=== PATIENT | male | born 1980 | race American Indian/Alaskan Native ===

== ENCOUNTER 2021-03-15 22:07 | Emergency (ER) | payer SELFPAY ==
[2021-03-15 22:11] VITALS: BP 106/81; PULSE 140; RESP 19; TEMP 37.2; O2SAT 97
[2021-03-15 22:14] VITALS: BP 100/68; PULSE 152; O2SAT 95
[2021-03-15] MEDS: LORazepam 2 MG/ML INJ ×2 (22:15→22:52)
[2021-03-15] MEDS: SODIUM CHLORIDE 0.9% 1,000 ML 150 ML IV (22:29)
[2021-03-15 22:30] LABS: Add Manual Diff / Slide Review NO; Basophils Absolute Auto 100 /uL (0-100); Basophils Percent Auto 0.6 % (0-2); Eosinophils Absolute Auto 0 /uL (0-450); Eosinophils Percent Auto 0.1 % (2-4); Hematocrit 41.8 % (41-53); Hemoglobin 14.4 g/dL (13.5-17.5); Lymphocytes Absolute Auto 1400 /uL (1100-4500); Lymphocytes Percent Auto 13.1 % (25-40); Mean Corpuscular HGB Conc 34.6 % (30-36); Mean Corpuscular Hemoglobin 32.2 PG (26-34); Mean Corpuscular Volume 93.1 fL (80-100); Monocytes Absolute Auto 300 /uL (0-900); Monocytes Percent Auto 2.7 % (3-14); Neutrophils Absolute Auto 9100 /uL (1500-7000); Neutrophils Percent Auto 83.5 % (50-75); Platelet Count 338 X10^3/uL (150-400); Red Blood Cell Count 4.49 X10^6/uL (4.5-5.9); Red Cell Distribution Width 12.8 % (11.6-14.8); White Blood Cell Count 10.9 X10^3/uL (4.5-11.0)
[2021-03-15 22:37] LABS: Prothrombin Time 11.2 SECONDS (10.1-12.7)
[2021-03-15 22:40] LABS: Acetaminophen < 10 ug/mL (10-30); Albumin 4.7 g/dL (3.5-5.0); Albumin Globulin Ratio 1.7 (1.0-2.8); Alkaline Phosphatase 75 U/L (38-126); BUN Creatinine Ratio 5.6 (6-22); Bilirubin Total 0.4 mg/dL (0.2-1.3); Blood Urea Nitrogen 6 mg/dL (9-20); Calcium 9.4 mg/dL (8.4-10.2); Carbon Dioxide 14 mmol/L (22-32); Chloride 102 mmol/L (98-107); Estimated Glomerular Filt Rate > 60.0 mL/min (>60); Ethanol (ETOH) < 10 mg/dL; Globulin 2.7 g/dL (1.7-4.1); Glucose 200 mg/dL (70-100); HEMOLYSIS < 15 (0-50); PTT Partial Thromboplastin Tim 26 SECONDS (26.4-36.2); Potassium 3.2 mmol/L (3.4-5.1); Salicylate < 1.0 mg/dL (<20); Sodium 138 mmol/L (137-145); Total Protein 7.4 g/dL (6.3-8.2)
[2021-03-15 22:45] LABS: Aspartate Aminotransferase 37 IU/L (17-59)
[2021-03-15 22:46] VITALS: BP 92/52; PULSE 123; O2SAT 100
[2021-03-15 22:46] LABS: Alanine Aminotransferase 25 IU/L (<50)
[2021-03-15] MEDS: THIAMINE 100 MG in DEXTROSE 5 % IN WATER 50 ML 204 ML IV (22:47)
[2021-03-15 22:55] LABS: Lactate (Lactic Acid) 13.3 mmol/L (0.7-2.1)
[2021-03-15 22:56] LABS: Prolactin 31.8 ng/mL (3.7-17.9)
--- NOTE | 2021-03-15 23:01 | PC.NURSE ---
Pt remains combative/uncooperative, removing lines and wires. girlfriend Jacki at bedside. Pt medicated with additional 2mg ativan per verbal order from Dr Wolff. Pt c/o abd and back pain.
[2021-03-15 23:14] VITALS: BP 112/62; PULSE 102; PULSE 97; RESP 18; RESP 20; O2SAT 98
[2021-03-15 23:20] VITALS: BP 112/62; PULSE 96; RESP 16; O2SAT 99
[2021-03-15 23:22] LABS: Thyroid Stimulating Hormone 0.261 uIU/mL (0.47-4.68)
[2021-03-15 23:30] VITALS: BP 111/69; PULSE 95; O2SAT 97
[2021-03-16] VITALS (7 sets, daily range): BP systolic 109–129; BP diastolic 61–80; PULSE 93–121; RESP 17–18; TEMP 37.3; O2SAT 96–100
--- NOTE | 2021-03-16 00:16 | ED.SEIZURE ---
HPI - Seizure General Chief Complaint: Seizure Stated Complaint: Seizure Time Seen by Provider: 03/15/21 22:11 Source: EMS Mode of arrival: EMS Limitations: altered mental status History of Present Illness HPI Narrative: 40M nonsmoker with history of seizures presents by EMS for what sounds like seizure activity as witnessed by his girlfriend. Patient has historically been prescribed phenytoin extended 500 mg daily but it sounds like he has not been taking it. The history is very vague and unclear. Per girlfriend he has not used any drugs or alcohol, there has been no recent trauma, he was in his normal state of health until this episode this afternoon. He has been eating and drinking without difficulty and acting appropriate until this evening's event. Prior to arrival he was acting up for EMS and becoming a bit violent in a wrist to hurt himself and others and as a result was given Versed IM prior to his arrival. MD complaint: seizure Onset (ago): hour(s) Witnessed: yes - by bystander Trauma: No Seizure History: known seizure disorder Place: home Possible Precipitating Event: medication Treatments prior to arrival: benzodiazepines Related Data Previous Rx's Medication Instructions Recorded phenytoin sodium extended 500 mg PO QDAY #30 cap 03/16/21 [Dilantin Extended] Allergies Allergy/AdvReac Type Severity Reaction Status Date / Time INGREDIENT: NKDA - NO KNOWN Allergy Unknown Uncoded 03/07/18 12:55 DRUG ALLERGIES Review of Systems Review of Systems ROS Unobtainable: Unobtainable due to mental status/LOC Patient History Social History Smoking Status: Never smoker Smoking Status: Never smoker alcohol intake frequency: 0-2 drinks per day Substance Use Type: does not use Exam Narrative Exam Narrative: GENERAL: [40] year old patient appears stated age. Well-nourished, well-developed patient, in mild distress. Confused, restless, apparently postictal HEAD: Atraumatic. Normocephalic. EYES: Pupils equal round and reactive. Extraocular motions intact. No scleral icterus. No injection or drainage. ENT: Nose without bleeding, purulent drainage. Throat without erythema, tonsillar hypertrophy or exudate. Airway patent. NECK: Trachea midline. Non tender CARDIOVASCULAR: Regular rate and rhythm without murmurs, gallops, or rubs. RESPIRATORY: Clear to auscultation. Breath sounds equal bilaterally. No wheezes, rales, or rhonchi. GASTROINTESTINAL: Abdomen soft, non-tender, nondistended. EXTREMITIES: No edema or joint tenderness. BACK: Nontender without deformity or crepitance. No flank tenderness. SKIN: No rash or erythema of visible areas Initial Vital Signs Initial Vital Signs: Vital Signs Temperature 99.0 F 03/15/21 22:11 Pulse Rate 140 H 03/15/21 22:11 Respiratory Rate 03/15/21 22:11 Blood Pressure 106/81 03/15/21 22:11 Pulse Oximetry 97 03/15/21 22:11 Scores GCS [place] coma scale eye opening: To sound [place] coma scale verbal response: Confused [place] coma scale motor response: Localising [place] coma scale total score: 12 Course Orders Ordered: ED Orders 03/15/21 22:11 Urinalysis and Microscopic Stat Urine Drug Screen, Rapid Stat 03/15/21 22:12 CT head/brain wo con Stat EKG-12 Lead Stat 03/15/21 22:20 Acetaminophen Stat Complete Blood Count AUTO DIFF Stat Comprehensive Metabolic Panel Stat Ethanol (ETOH) Stat Lactate (Lactic Acid) Stat Partial Thromboplastin Time Stat Prolactin Stat Prothrombin Time INR Stat Salicylate Stat Thyroid Stimulating Hormone Stat 03/16/21 00:17 Phenytoin / Dilantin Stat 03/16/21 01:10 COVID19 -Nasal swab/Pre-Proc Stat Sodium Chloride (Normal Saline 0.9%) 1,000 mls @ 150 mls/hr IV CONT NETTA Last Infusion: 03/16/21 03:05 Dose: 0 mls/hr Documented by: Admin: 03/15/21 22:29 Dose: 150 mls/hr Documented by: FAHAD Sodium Chloride (Normal Saline 0.9%) 1,000 mls @ 1,000 mls/hr IV BOLUS ONE Stop: 03/16/21 06:40 Discontinued Medications Thiamine HCl 100 mg/ Dextrose 51 mls @ 204 mls/hr IV NOW ONE Stop: 03/15/21 22:12 Last Infusion: 03/15/21 23:06 Dose: 0 mls/hr Documented by: Admin: 03/15/21 22:47 Dose: 204 mls/hr Documented by: FAHAD Phenytoin 1,000 mg/ Sodium (Chloride) 120 mls @ 120 mls/hr IV NOW ONE Stop: 03/16/21 00:57 Last Infusion: 03/16/21 03:05 Dose: 0 mls/hr Documented by: Admin: 03/16/21 01:24 Dose: 120 mls/hr Documented by: FAHAD Reevaluation(s) Reevaluation #1: patient AOx3. Doing much better. NO pain, confusion. Patient has been loaded with Dilantin. Vital Signs Vital signs: Vital Signs - 8 hr 03/15/21 22:11 03/15/21 22:14 03/15/21 22:46 Temperature 99.0 F Pulse Rate 140 H 152 H 123 H Pulse Rate [Orthostatic Lying] Pulse Rate [Orthostatic Sitting] Pulse Rate [Orthostatic Standing] Respiratory Rate 19 Blood Pressure 106/81 100/68 92/52 L Blood Pressure [Orthostatic Lying] Blood Pressure [Orthostatic Sitting] Blood Pressure [Orthostatic Standing] Pulse Oximetry 97 95 100 03/15/21 23:14 03/15/21 23:20 03/15/21 23:30 Temperature Pulse Rate 102 H 96 H 95 H Pulse Rate [Orthostatic Lying] Pulse Rate [Orthostatic Sitting] Pulse Rate [Orthostatic Standing] Respiratory Rate 20 16 Blood Pressure 112/62 112/62 111/69 Blood Pressure [Orthostatic Lying] Blood Pressure [Orthostatic Sitting] Blood Pressure [Orthostatic Standing] Pulse Oximetry 98 99 97 03/16/21 00:00 03/16/21 00:30 03/16/21 01:46 Temperature Pulse Rate 100 H 93 H 94 H Pulse Rate [Orthostatic Lying] Pulse Rate [Orthostatic Sitting] Pulse Rate [Orthostatic Standing] Respiratory Rate Blood Pressure 115/71 Blood Pressure [Orthostatic Lying] Blood Pressure [Orthostatic Sitting] Blood Pressure [Orthostatic Standing] Pulse Oximetry 96 97 100 03/16/21 01:47 03/16/21 05:19 03/16/21 05:41 Temperature 99.1 F Pulse Rate 99 H 105 H Pulse Rate [Orthostatic Lying] 99 H Pulse Rate [Orthostatic Sitting] 110 H Pulse Rate [Orthostatic Standing] 121 H Respiratory Rate 17 Blood Pressure 129/80 126/61 Blood Pressure [Orthostatic Lying] 109/70 Blood Pressure [Orthostatic Sitting] 113/72 Blood Pressure [Orthostatic Standing] 111/64 Pulse Oximetry 100 98 MDM - Seizure Lab Data Result diagrams: 03/15/21 22:20 03/15/21 22:20 Labs: Lab Results 03/15/21 03/15/21 03/15/21 Range/Units 22:20 22:20 22:20 WBC 10.9 (4.5-11.0) X10^3/uL RBC 4.49 L (4.5-5.9) X10^6/uL Hgb 14.4 (13.5-17.5) g/dL Hct 41.8 (41-53) % MCV 93.1 (80-100) fL MCH 32.2 (26-34) PG MCHC 34.6 (30-36) % RDW 12.8 (11.6-14.8) % Plt Count 338 (150-400) X10^3/uL Neut % (Auto) 83.5 H (50-75) % Lymph % (Auto) 13.1 L (25-40) % [place] % (Auto) 2.7 L (3-14) % Eos % (Auto) 0.1 L (2-4) % Baso % (Auto) 0.6 (0-2) % Neut # (Auto) 9100 H (4522-9415) /uL Lymph # (Auto) 1400 (4881-4151) /uL [place] # (Auto) 300 (0-900) /uL Eos # (Auto) 0 (0-450) /uL Baso # (Auto) 100 (0-100) /uL PT 11.2 (10.1-12.7) SECONDS INR 1.0 (0.9-1.3) APTT 26 L (26.4-36.2) SECONDS Sodium 138 (137-145) mmol/L Potassium 3.2 L (3.4-5.1) mmol/L Chloride 102 (98-107) mmol/L Carbon Dioxide 14 L (22-32) mmol/L BUN 6 L (9-20) mg/dL Creatinine 1.08 (0.66-1.25) mg/dL Estimated GFR > 60.0 (>60) mL/min BUN/Creatinine Ratio 5.6 L (6-22) Glucose 200 H (70-100) mg/dL Lactate (0.7-2.1) mmol/L Calcium 9.4 (8.4-10.2) mg/dL Total Bilirubin 0.4 (0.2-1.3) mg/dL AST 37 (17-59) IU/L ALT 25 (<50) IU/L Alkaline Phosphatase 75 (38-126) U/L Total Protein 7.4 (6.3-8.2) g/dL Albumin 4.7 (3.5-5.0) g/dL Globulin 2.7 (1.7-4.1) g/dL Albumin/Globulin Ratio 1.7 (1.0-2.8) TSH (0.47-4.68) uIU/mL Prolactin 31.8 H (3.7-17.9) ng/mL Urine Color Urine Appearance Urine pH (4.5-8.0) Ur Specific [place] (1.000-1.035) Urine Protein (Negative) Urine Glucose (UA) (Negative) g/dL Urine Ketones (NEGATIVE) Urine Occult Blood (Negative) Urine Nitrate (Negative) Urine Bilirubin (NEGATIVE) Urine Urobilinogen (0.2) E.U./dL Ur Leukocyte Esterase (NEGATIVE) Urine RBC (0-5/HPF) Urine WBC (0-5/HPF) Urine Bacteria (None) Ur Culture Indicated? Salicylates < 1.0 (<20) mg/dL U Opiates 300ng/mL cut (Negative) Ur Oxycodone Screen (Negative) Urine Methadone Screen (Negative) Acetaminophen < 10 L (10-30) ug/mL Ur Barbiturates Screen (Negative) Phenytoin (10-20) ug/mL U Tricyclic Antidepress (Negative) Ur Phencyclidine Scrn (Negative) Ur Amphetamines Screen (Negative) U Methamphetamines Scrn (Negative) Ur MDMA Scrn (Ecstasy) (Negative) U Benzodiazepines Scrn (Negative) Urine Cocaine Screen (Negative) U Marijuana (THC) Screen (Negative) Ethyl Alcohol < 10 ( - 10) mg/dL SARS-CoV-2 (PCR) (Negative) 03/15/21 03/15/21 03/15/21 Range/Units 22:20 22:20 22:20 WBC (4.5-11.0) X10^3/uL RBC (4.5-5.9) X10^6/uL Hgb (13.5-17.5) g/dL Hct (41-53) % MCV (80-100) fL MCH (26-34) PG MCHC (30-36) % RDW (11.6-14.8) % Plt Count (150-400) X10^3/uL Neut % (Auto) (50-75) % Lymph % (Auto) (25-40) % [place] % (Auto) (3-14) % Eos % (Auto) (2-4) % Baso % (Auto) (0-2) % Neut # (Auto) (1763-7022) /uL Lymph # (Auto) (3556-0170) /uL [place] # (Auto) (0-900) /uL Eos # (Auto) (0-450) /uL Baso # (Auto) (0-100) /uL PT (10.1-12.7) SECONDS INR (0.9-1.3) APTT (26.4-36.2) SECONDS Sodium (137-145) mmol/L Potassium (3.4-5.1) mmol/L Chloride (98-107) mmol/L Carbon Dioxide (22-32) mmol/L BUN (9-20) mg/dL Creatinine (0.66-1.25) mg/dL Estimated GFR (>60) mL/min BUN/Creatinine Ratio (6-22) Glucose (70-100) mg/dL Lactate 13.3 H* (0.7-2.1) mmol/L Calcium (8.4-10.2) mg/dL Total Bilirubin (0.2-1.3) mg/dL AST (17-59) IU/L ALT (<50) IU/L Alkaline Phosphatase (38-126) U/L Total Protein (6.3-8.2) g/dL Albumin (3.5-5.0) g/dL Globulin (1.7-4.1) g/dL Albumin/Globulin Ratio (1.0-2.8) TSH 0.261 L (0.47-4.68) uIU/mL Prolactin (3.7-17.9) ng/mL Urine Color Urine Appearance Urine pH (4.5-8.0) Ur Specific [place] (1.000-1.035) Urine Protein (Negative) Urine Glucose (UA) (Negative) g/dL Urine Ketones (NEGATIVE) Urine Occult Blood (Negative) Urine Nitrate (Negative) Urine Bilirubin (NEGATIVE) Urine Urobilinogen (0.2) E.U./dL Ur Leukocyte Esterase (NEGATIVE) Urine RBC (0-5/HPF) Urine WBC (0-5/HPF) Urine Bacteria (None) Ur Culture Indicated? Salicylates (<20) mg/dL U Opiates 300ng/mL cut (Negative) Ur Oxycodone Screen (Negative) Urine Methadone Screen (Negative) Acetaminophen (10-30) ug/mL Ur Barbiturates Screen (Negative) Phenytoin < 3.0 L (10-20) ug/mL U Tricyclic Antidepress (Negative) Ur Phencyclidine Scrn (Negative) Ur Amphetamines Screen (Negative) U Methamphetamines Scrn (Negative) Ur MDMA Scrn (Ecstasy) (Negative) U Benzodiazepines Scrn (Negative) Urine Cocaine Screen (Negative) U Marijuana (THC) Screen (Negative) Ethyl Alcohol ( - 10) mg/dL SARS-CoV-2 (PCR) (Negative) 03/16/21 03/16/21 03/16/21 Range/Units 00:27 01:10 05:45 WBC (4.5-11.0) X10^3/uL RBC (4.5-5.9) X10^6/uL Hgb (13.5-17.5) g/dL Hct (41-53) % MCV (80-100) fL MCH (26-34) PG MCHC (30-36) % RDW (11.6-14.8) % Plt Count (150-400) X10^3/uL Neut % (Auto) (50-75) % Lymph % (Auto) (25-40) % [place] % (Auto) (3-14) % Eos % (Auto) (2-4) % Baso % (Auto) (0-2) % Neut # (Auto) (0376-3494) /uL Lymph # (Auto) (4558-3029) /uL [place] # (Auto) (0-900) /uL Eos # (Auto) (0-450) /uL Baso # (Auto) (0-100) /uL PT (10.1-12.7) SECONDS INR (0.9-1.3) APTT (26.4-36.2) SECONDS Sodium (137-145) mmol/L Potassium (3.4-5.1) mmol/L Chloride (98-107) mmol/L Carbon Dioxide (22-32) mmol/L BUN (9-20) mg/dL Creatinine (0.66-1.25) mg/dL Estimated GFR (>60) mL/min BUN/Creatinine Ratio (6-22) Glucose (70-100) mg/dL Lactate 2.5 H (0.7-2.1) mmol/L Calcium (8.4-10.2) mg/dL Total Bilirubin (0.2-1.3) mg/dL AST (17-59) IU/L ALT (<50) IU/L Alkaline Phosphatase (38-126) U/L Total Protein (6.3-8.2) g/dL Albumin (3.5-5.0) g/dL Globulin (1.7-4.1) g/dL Albumin/Globulin Ratio (1.0-2.8) TSH (0.47-4.68) uIU/mL Prolactin (3.7-17.9) ng/mL Urine Color Yellow Urine Appearance Clear Urine pH 7.0 (4.5-8.0) Ur Specific [place] 1.020 (1.000-1.035) Urine Protein Negative (Negative) Urine Glucose (UA) Negative (Negative) g/dL Urine Ketones Negative (NEGATIVE) Urine Occult Blood Negative (Negative) Urine Nitrate Negative (Negative) Urine Bilirubin Negative (NEGATIVE) Urine Urobilinogen 0.2 (0.2) E.U./dL Ur Leukocyte Esterase Negative (NEGATIVE) Urine RBC None seen (0-5/HPF) Urine WBC None seen (0-5/HPF) Urine Bacteria None seen (None) Ur Culture Indicated? Cult not indicated Salicylates (<20) mg/dL U Opiates 300ng/mL cut (Negative) Ur Oxycodone Screen (Negative) Urine Methadone Screen (Negative) Acetaminophen (10-30) ug/mL Ur Barbiturates Screen (Negative) Phenytoin (10-20) ug/mL U Tricyclic Antidepress (Negative) Ur Phencyclidine Scrn (Negative) Ur Amphetamines Screen (Negative) U Methamphetamines Scrn (Negative) Ur MDMA Scrn (Ecstasy) (Negative) U Benzodiazepines Scrn (Negative) Urine Cocaine Screen (Negative) U Marijuana (THC) Screen (Negative) Ethyl Alcohol ( - 10) mg/dL SARS-CoV-2 (PCR) Negative (Negative) 03/16/21 Range/Units 05:45 WBC (4.5-11.0) X10^3/uL RBC (4.5-5.9) X10^6/uL Hgb (13.5-17.5) g/dL Hct (41-53) % MCV (80-100) fL MCH (26-34) PG MCHC (30-36) % RDW (11.6-14.8) % Plt Count (150-400) X10^3/uL Neut % (Auto) (50-75) % Lymph % (Auto) (25-40) % [place] % (Auto) (3-14) % Eos % (Auto) (2-4) % Baso % (Auto) (0-2) % Neut # (Auto) (7888-6746) /uL Lymph # (Auto) (8600-5273) /uL [place] # (Auto) (0-900) /uL Eos # (Auto) (0-450) /uL Baso # (Auto) (0-100) /uL PT (10.1-12.7) SECONDS INR (0.9-1.3) APTT (26.4-36.2) SECONDS Sodium (137-145) mmol/L Potassium (3.4-5.1) mmol/L Chloride (98-107) mmol/L Carbon Dioxide (22-32) mmol/L BUN (9-20) mg/dL Creatinine (0.66-1.25) mg/dL Estimated GFR (>60) mL/min BUN/Creatinine Ratio (6-22) Glucose (70-100) mg/dL Lactate (0.7-2.1) mmol/L Calcium (8.4-10.2) mg/dL Total Bilirubin (0.2-1.3) mg/dL AST (17-59) IU/L ALT (<50) IU/L Alkaline Phosphatase (38-126) U/L Total Protein (6.3-8.2) g/dL Albumin (3.5-5.0) g/dL Globulin (1.7-4.1) g/dL Albumin/Globulin Ratio (1.0-2.8) TSH (0.47-4.68) uIU/mL Prolactin (3.7-17.9) ng/mL Urine Color Urine Appearance Urine pH (4.5-8.0) Ur Specific [place] (1.000-1.035) Urine Protein (Negative) Urine Glucose (UA) (Negative) g/dL Urine Ketones (NEGATIVE) Urine Occult Blood (Negative) Urine Nitrate (Negative) Urine Bilirubin (NEGATIVE) Urine Urobilinogen (0.2) E.U./dL Ur Leukocyte Esterase (NEGATIVE) Urine RBC (0-5/HPF) Urine WBC (0-5/HPF) Urine Bacteria (None) Ur Culture Indicated? Salicylates (<20) mg/dL U Opiates 300ng/mL cut Negative (Negative) Ur Oxycodone Screen Negative (Negative) Urine Methadone Screen Negative (Negative) Acetaminophen (10-30) ug/mL Ur Barbiturates Screen Positive H (Negative) Phenytoin (10-20) ug/mL U Tricyclic Antidepress Negative (Negative) Ur Phencyclidine Scrn Negative (Negative) Ur Amphetamines Screen Negative (Negative) U Methamphetamines Scrn Negative (Negative) Ur MDMA Scrn (Ecstasy) Negative (Negative) U Benzodiazepines Scrn Positive H (Negative) Urine Cocaine Screen Negative (Negative) U Marijuana (THC) Screen Positive H (Negative) Ethyl Alcohol ( - 10) mg/dL SARS-CoV-2 (PCR) (Negative) Point of Care Testing Glucose POC 172 Discharge Plan Departure Patient Disposition: Home Clinical Impression: Epileptic seizure Instructions: DI for Seizure Disorder -- Adult Activity Restrictions/Additional Instructions: *You have been diagnosed with [breakthrough seizure due to medical noncompliance] *What to do: *Take medications as directed *Follow up with your primary care provider in 2-3 days, call for an appointment. Let them know you were seen in the Emergency Department and that we ask that you be seen in follow up *Return to ER if you should have any new, worsening or concerning symptoms Please call our Social Work team at [phone] after 12pm today, they may have a way to help you get your medications Prescriptions: Continued phenytoin sodium extended [Dilantin Extended] 100 MG capsule 500 mg PO QDAY Qty: 30 RF: 0 Referrals: Cale Muñoz MD [Primary Care Provider] -
[2021-03-16 00:22] LABS: Reflexed Lactate in 2 Hours Y
[2021-03-16 00:38] LABS: Phenytoin / Dilantin < 3.0 ug/mL (10-20)
[2021-03-16 00:53] LABS: Lactate 2HR (Lactic Acid Rflx) 2.5 mmol/L (0.7-2.1)
[2021-03-16] MEDS: PHENYTOIN 1,000 MG in SODIUM CHLORIDE 0.9% 100 ML 120 ML IV (01:24)
[2021-03-16 01:36] LABS: COVID19 -Nasal RAPID Negative (Negative)
[2021-03-16 05:51] LABS: Bacteria Urine None Seen; RBC Urine None Seen (0-5/HPF); WBC Urine None Seen (0-5/HPF)
[2021-03-16 05:53] LABS: Appearance Urine UA CLEAR; Bilirubin Urine UA NEGATIVE (NEGATIVE); Color Urine UA YELLOW; Glucose Urine UA NEGATIVE (Negative); Ketones Urine UA NEGATIVE (NEGATIVE); Leukocyte Esterase Urine UA NEGATIVE (NEGATIVE); Nitrite Urine UA NEGATIVE (Negative); Occult Blood Urine UA NEGATIVE (Negative); Protein Urine UA NEGATIVE (Negative); Urobilinogen Urine UA 0.2 E.U./dL (0.2)
[2021-03-16 05:58] LABS: Culture Indicated Urine Cult Not Indicated
[2021-03-16 06:00] LABS: Ur Creatinine Normal (Normal); Ur Specific Gravity Normal (Normal); Urine Cocaine Negative (Negative); Urine Tetrahydrocannabinol Positive (Negative); Urine pH Normal (Normal)
[2021-03-16 06:01] LABS: UR Morphine/Opiate cutoff 300 Negative (Negative); Urine Amphetamines Negative (Negative); Urine Barbiturates Positive (Negative); Urine Benzodiazepines Positive (Negative); Urine MDMA Negative (Negative); Urine Methadone Negative (Negative); Urine Methamphetamines Negative (Negative); Urine Oxycodone Negative (Negative); Urine Phencyclidine Negative (Negative); Urine Tricyclic Antidepressant Negative (Negative)
== END 2021-03-16 06:21 | disposition home or self-care (01) ==
PROVIDERS: Emergency Provider Emergency Medicine; PCP Family Medicine
DX: G40.909 Epilepsy, unspecified, not intractable, without status epilepticus (principal); Z20.822 Contact with and (suspected) exposure to COVID-19
CPT/HCPCS: 36415; 80053; 80185; 80305; 80320; 80329; 81001; 82962; 83605; 84146; 84443; 85025; 85610; 85730; 87635; 93005; 93010; 96361; 96365; 96366; 99284; C9803; G0480; J1165; J2060

== ENCOUNTER 2023-04-07 21:37 | Emergency (ER) | payer SELFPAY ==
[2023-04-07] VITALS (32 sets, daily range): BP systolic 80–162; BP diastolic 50–114; PULSE 85–121; RESP 13–55; TEMP 35.6–36.6; O2SAT 92–100
--- NOTE | 2023-04-07 21:36 | ED_ITS ---
HPI - Seizure General Chief Complaint: Seizure Stated Complaint: Seizure Time Seen by Provider: 04/07/23 21:37 History of Present Illness HPI Narrative: Patient is a 42-year-old male history of seizures on Dilantin presents postictal and intubated. EMS reports that he was on a work bus when he had tonic-clonic seizure when EMS arrived he was agitated postictal not redirectable. He was given 2 doses of 5 mg of Versed without any response given 250 mg IM of ketamine without any response ultimately IV placed given 250 of IV ketamine and and required airway protection and intubation, also received rocuronium 100 mg. No evidence or history of trauma. I have attempted to call his mother listed in the chart at [phone] left a voicemail. Related Data Previous Rx's Medication Instructions Recorded phenytoin sodium extended 100 mg 500 mg PO QDAY #30 caps 03/16/21 capsule (Dilantin Extended) Allergies Allergy/AdvReac Type Severity Reaction Status Date / Time No Known Drug Allergies Allergy Verified 04/07/23 21:49 Review of Systems Review of Systems ROS Unobtainable: Unobtainable due to medical condition Patient History Social History Smoking Status: Never smoker Smoking Status: Never smoker alcohol intake frequency: 0-2 drinks per day Substance Use Type: does not use Exam Initial Vital Signs Initial Vital Signs: Vital Signs Temperature 96.4 F L 04/07/23 21:40 Pulse Rate 85 04/07/23 21:40 Blood Pressure 125/84 04/07/23 21:40 Pulse Oximetry 97 04/07/23 21:40 Oxygen Delivery Method Mechanical Ventilation 04/07/23 21:40 Oxygen Flow Rate 15 04/07/23 21:40 GENERAL: Intubated sedated 42-year-old male HEENT: Head atraumatic,EOMI, pupils nonreactive, face symmetric, [moist] mucous membranes [EARS:] [Tympanic membranes visualized, no erythema or bulging, no hemotympanum] [PHARYNX:] [No erythema, no tonsillar exudate, no cervical lymphadenopathy] CARDIOVASCULAR: Regular rate and rhythm without murmurs, rubs or gallops. RESPIRATORY: Breath sounds equal bilaterally, no wheezes rales or rhonchi. ABDOMEN: Soft, nontender. Normoactive bowel sounds all 4 quadrants. No guarding or rebound. [RECTAL:] [Hemoccult-positive, no hemorrhoids, nontender] : No CVA tenderness EXTREMITIES: Normal range of motion, no clubbing or edema. Neurovascularly intact NEUROLOGICAL: Alert and oriented x4.Normal gait and speech. Cranial nerves II through XII grossly intact. [Good [id number], good [id number], strength equal bilaterally, no dysarthria or aphasia, sensation in tact to soft touch bilaterally, no visual changes, no facial droop] SKIN: Warm, dry, no laceration, no petechiae, no rashes or lesions. Course Orders Ordered: ED Orders 04/07/23 21:37 CT head/brain wo con Stat 04/07/23 21:39 Chest [XR chest 1V] Stat EKG-12 Lead Stat 04/07/23 21:45 CBC Auto Diff [Complete Blood Count AUTO DIFF] Stat CMP [Comprehensive Metabolic Panel] Stat ETOH [Ethanol (ETOH)] Stat Lactate (Lactic Acid) Stat Phenytoin / Dilantin Stat Prolactin Stat Troponin & CK Cardiac Panel Stat 04/07/23 21:51 Ventilator Order 04/07/23 21:53 Arterial Blood Gas Stat COVID19 -Nasal RAPID Stat Urine Drug Screen, Rapid Stat 04/08/23 01:53 Respiratory Panel (Film Array) Stat 04/08/23 02:47 Blood Culture Stat Lorazepam 20 mg/ Sodium (Chloride) 100 mls @ 3.65 mls/hr IV TITRATE NETTA; Protocol Last Titration: 04/08/23 03:33 Dose: 0.02 mg/kg/hr, 7.3 mls/hr Documented By: Titration: 04/07/23 23:29 Dose: 0.02 mg/kg/hr, 7.3 mls/hr Documented By: Titration: 04/07/23 22:52 Dose: 0.03 mg/kg/hr, 10.95 mls/hr Documented By: Titration: 04/07/23 22:32 Dose: 0.02 mg/kg/hr, 7.3 mls/hr Documented By: Admin: 04/07/23 22:24 Dose: 0.01 mg/kg/hr, 3.65 mls/hr Documented By: HNG Fentanyl 1,000 mcg/ Dextrose 250 mls @ 12.775 mls/hr IV TITRATE NETTA; Protocol Last Titration: 04/08/23 03:33 Dose: 2 mcg/kg/hr, 36.5 mls/hr Documented By: Admin: 04/08/23 03:19 Dose: 2 mcg/kg/hr, 36.5 mls/hr Documented By: Titration: 04/08/23 03:19 Dose: 2 mcg/kg/hr, 36.5 mls/hr Documented By: Titration: 04/08/23 02:21 Dose: 2 mcg/kg/hr, 36.5 mls/hr Documented By: Titration: 04/07/23 22:52 Dose: 3 mcg/kg/hr, 54.75 mls/hr Documented By: Titration: 04/07/23 22:45 Dose: 2 mcg/kg/hr, 36.5 mls/hr Documented By: Titration: 04/07/23 22:34 Dose: 1 mcg/kg/hr, 18.25 mls/hr Documented By: Admin: 04/07/23 22:11 Dose: 0.7 mcg/kg/hr, 12.775 mls/hr Documented By: HNG Propofol (Propofol) 1,000 mg in 100 mls @ 2.19 mls/hr IV TITRATE NETTA; Protocol Last Titration: 04/08/23 03:33 Dose: 20 mcg/kg/min, 8.76 mls/hr Documented By: Titration: 04/08/23 02:05 Dose: 20 mcg/kg/min, 8.76 mls/hr Documented By: Titration: 04/08/23 01:00 Dose: 18 mcg/kg/min, 7.884 mls/hr Documented By: Titration: 04/07/23 23:27 Dose: 20 mcg/kg/min, 8.76 mls/hr Documented By: Admin: 04/07/23 23:06 Dose: 5 mcg/kg/min, 2.19 mls/hr Documented By: HNG dexmedeTOMIDine in 0.9 % NaCL (Precedex) 400 mcg in 100 mls @ 3.65 mls/hr IV TITRATE NETTA Last Admin: 04/08/23 01:39 Dose: Not Given Documented By: RLS Discontinued Medications Hydromorphone HCl (Hydromorphone 1 Mg Inj) 1 mg IV NOW ONE Stop: 04/07/23 22:55 Last Admin: 04/07/23 23:07 Dose: 1 mg Documented By: CASSIDY Hydromorphone HCl (Hydromorphone 1 Mg Inj) 1 mg IV NOW ONE Stop: 04/07/23 22:56 Last Admin: 04/08/23 01:54 Dose: Not Given Documented By: JC Levetiracetam 1,000 mg/ Sodium (Chloride) 110 mls @ 440 mls/hr IV NOW ONE Stop: 04/07/23 22:31 Last Infusion: 04/07/23 23:11 Dose: 0 mls/hr Documented By: Admin: 04/07/23 22:53 Dose: 440 mls/hr Documented By: CASSIDY Ketamine HCl (Ketamine 500 Mg/10 Ml Inj) 200 mg IV NOW ONE Stop: 04/07/23 23:17 Last Admin: 04/07/23 23:21 Dose: 200 mg Documented By: CASSIDY Lorazepam (Lorazepam 2 Mg/Ml Inj) 2 mg IV NOW ONE Stop: 04/07/23 22:55 Last Admin: 04/07/23 23:07 Dose: 2 mg Documented By: CASSIDY Midazolam HCl (Midazolam 5 Mg/Ml Vial) 4 mg IV NOW ONE Stop: 04/07/23 21:38 Last Admin: 04/07/23 22:49 Dose: 4 mg Documented By: CASSIDY Propofol (Propofol 200 Mg/20 Ml Vial) 100 mg IV NOW ONE Stop: 04/07/23 23:09 Last Admin: 04/07/23 23:09 Dose: 100 mg Documented By: CASSIDY Propofol (Propofol 200 Mg/20 Ml Vial) 50 mg IV NOW ONE Stop: 04/08/23 02:16 Last Admin: 04/08/23 02:03 Dose: 50 mg Documented By: KARLIE Vital Signs Vital signs: Vital Signs - 8 hr 04/07/23 21:40 04/07/23 21:42 04/07/23 21:42 Temperature 96.4 F L Pulse Rate 85 89 Respiratory Rate 19 Blood Pressure 125/84 125/84 Pulse Oximetry 97 Oxygen Delivery Method Mechanical Ventilation Oxygen Flow Rate 15 Fraction of Inspired Oxygen 04/07/23 21:45 04/07/23 21:45 04/07/23 21:50 Temperature Pulse Rate 103 H Respiratory Rate 18 Blood Pressure 140/104 H 135/96 H Pulse Oximetry 92 Oxygen Delivery Method Oxygen Flow Rate Fraction of Inspired Oxygen 04/07/23 21:50 04/07/23 21:55 04/07/23 21:55 Temperature 96.1 F L 96.6 F L Pulse Rate 88 92 H Respiratory Rate 18 18 Blood Pressure 149/102 H Pulse Oximetry 97 97 Oxygen Delivery Method Oxygen Flow Rate Fraction of Inspired Oxygen 04/07/23 22:00 04/07/23 22:00 04/07/23 22:05 Temperature 96.4 F L 96.4 F L Pulse Rate 93 H 96 H Respiratory Rate 18 21 Blood Pressure 151/99 H Pulse Oximetry 97 97 Oxygen Delivery Method Oxygen Flow Rate Fraction of Inspired Oxygen 04/07/23 22:05 04/07/23 22:10 04/07/23 22:10 Temperature 96.4 F L Pulse Rate 93 H Respiratory Rate 19 Blood Pressure 146/101 H 140/87 Pulse Oximetry 96 Oxygen Delivery Method Oxygen Flow Rate Fraction of Inspired Oxygen 04/07/23 22:15 04/07/23 22:15 04/07/23 22:20 Temperature 96.3 F L Pulse Rate 97 H Respiratory Rate 19 Blood Pressure 143/90 H 142/92 H Pulse Oximetry 99 Oxygen Delivery Method Oxygen Flow Rate Fraction of Inspired Oxygen 04/07/23 22:20 04/07/23 22:25 04/07/23 22:25 Temperature 96.3 F L 96.3 F L Pulse Rate 99 H 104 H Respiratory Rate 24 29 H Blood Pressure 151/99 H Pulse Oximetry 99 100 Oxygen Delivery Method Oxygen Flow Rate Fraction of Inspired Oxygen 04/07/23 22:30 04/07/23 22:31 04/07/23 22:31 Temperature 96.3 F L 96.3 F L Pulse Rate 115 H 115 H Respiratory Rate 55 H 44 H Blood Pressure 162/114 H Pulse Oximetry 100 99 Oxygen Delivery Method Oxygen Flow Rate Fraction of Inspired Oxygen 04/07/23 22:35 04/07/23 22:35 04/07/23 22:40 Temperature 96.3 F L 96.4 F L Pulse Rate 110 H 118 H Respiratory Rate 39 H 44 H Blood Pressure 149/104 H Pulse Oximetry 99 Oxygen Delivery Method Oxygen Flow Rate Fraction of Inspired Oxygen 04/07/23 22:40 04/07/23 22:46 04/07/23 22:46 Temperature 96.4 F L Pulse Rate 116 H Respiratory Rate 34 H Blood Pressure 153/103 H 144/109 H Pulse Oximetry Oxygen Delivery Method Oxygen Flow Rate Fraction of Inspired Oxygen 04/07/23 22:51 04/07/23 22:51 04/07/23 23:00 Temperature Pulse Rate 114 H Respiratory Rate 38 H Blood Pressure 128/92 H 140/89 Pulse Oximetry 98 Oxygen Delivery Method Oxygen Flow Rate Fraction of Inspired Oxygen 04/07/23 23:00 04/07/23 23:05 04/07/23 23:05 Temperature 97.2 F L Pulse Rate 121 H 99 H Respiratory Rate 41 H 21 Blood Pressure 80/50 L Pulse Oximetry Oxygen Delivery Method Oxygen Flow Rate Fraction of Inspired Oxygen 04/07/23 23:10 04/07/23 23:10 04/07/23 23:11 Temperature Pulse Rate 102 H Respiratory Rate 26 H Blood Pressure 90/54 L 103/66 Pulse Oximetry Oxygen Delivery Method Oxygen Flow Rate Fraction of Inspired Oxygen 04/07/23 23:11 04/07/23 23:15 04/07/23 23:16 Temperature Pulse Rate 103 H 110 H 113 H Respiratory Rate 19 41 H 40 H Blood Pressure Pulse Oximetry Oxygen Delivery Method Oxygen Flow Rate Fraction of Inspired Oxygen 04/07/23 23:16 04/07/23 23:20 04/07/23 23:21 Temperature Pulse Rate 113 H 117 H Respiratory Rate 26 H 24 Blood Pressure 131/90 Pulse Oximetry Oxygen Delivery Method Oxygen Flow Rate Fraction of Inspired Oxygen 04/07/23 23:21 04/07/23 23:25 04/07/23 23:25 Temperature Pulse Rate 100 H Respiratory Rate 13 Blood Pressure 146/80 H 133/82 Pulse Oximetry Oxygen Delivery Method Oxygen Flow Rate Fraction of Inspired Oxygen 04/07/23 23:30 04/07/23 23:30 04/07/23 23:35 Temperature Pulse Rate 95 H Respiratory Rate 18 Blood Pressure 117/72 112/69 Pulse Oximetry Oxygen Delivery Method Oxygen Flow Rate Fraction of Inspired Oxygen 04/07/23 23:35 04/07/23 23:40 04/07/23 23:40 Temperature 97.9 F Pulse Rate 87 85 Respiratory Rate 18 24 Blood Pressure 106/65 Pulse Oximetry 99 99 Oxygen Delivery Method Oxygen Flow Rate Fraction of Inspired Oxygen 04/07/23 23:45 04/07/23 23:45 04/07/23 23:50 Temperature 97.9 F Pulse Rate 87 Respiratory Rate 18 Blood Pressure 127/74 111/71 Pulse Oximetry 98 Oxygen Delivery Method Oxygen Flow Rate Fraction of Inspired Oxygen 04/07/23 23:50 04/07/23 23:55 04/07/23 23:55 Temperature 97.7 F 97.5 F L Pulse Rate 87 85 Respiratory Rate 18 17 Blood Pressure 110/71 Pulse Oximetry 98 97 Oxygen Delivery Method Oxygen Flow Rate Fraction of Inspired Oxygen 04/08/23 00:00 04/08/23 00:00 04/08/23 00:05 Temperature 97.5 F L Pulse Rate 85 Respiratory Rate 18 Blood Pressure 107/66 107/64 Pulse Oximetry 97 Oxygen Delivery Method Oxygen Flow Rate Fraction of Inspired Oxygen 04/08/23 00:05 04/08/23 00:10 04/08/23 00:10 Temperature 97.5 F L 97.3 F L Pulse Rate 85 83 Respiratory Rate 18 18 Blood Pressure 108/65 Pulse Oximetry 97 97 Oxygen Delivery Method Oxygen Flow Rate Fraction of Inspired Oxygen 04/08/23 00:15 04/08/23 00:15 04/08/23 00:20 Temperature 97.3 F L Pulse Rate 83 Respiratory Rate 18 Blood Pressure 108/65 112/67 Pulse Oximetry 97 Oxygen Delivery Method Oxygen Flow Rate Fraction of Inspired Oxygen 04/08/23 00:20 04/08/23 00:25 04/08/23 00:25 Temperature 97.3 F L 97.3 F L Pulse Rate 84 84 Respiratory Rate 18 18 Blood Pressure 110/67 Pulse Oximetry 96 97 Oxygen Delivery Method Oxygen Flow Rate Fraction of Inspired Oxygen 04/08/23 00:30 04/08/23 00:30 04/08/23 00:35 Temperature 97.2 F L Pulse Rate 83 Respiratory Rate 18 Blood Pressure 106/66 109/66 Pulse Oximetry 96 Oxygen Delivery Method Oxygen Flow Rate Fraction of Inspired Oxygen 04/08/23 00:35 04/08/23 00:40 04/08/23 00:40 Temperature 97.2 F L 97.2 F L Pulse Rate 83 82 Respiratory Rate 18 18 Blood Pressure 113/66 Pulse Oximetry 97 97 Oxygen Delivery Method Oxygen Flow Rate Fraction of Inspired Oxygen 04/08/23 00:45 04/08/23 00:45 04/08/23 00:50 Temperature 97.2 F L Pulse Rate 82 Respiratory Rate 18 Blood Pressure 108/66 111/69 Pulse Oximetry 97 Oxygen Delivery Method Oxygen Flow Rate Fraction of Inspired Oxygen 04/08/23 00:50 04/08/23 00:55 04/08/23 00:55 Temperature 97.2 F L 97.2 F L Pulse Rate 81 81 Respiratory Rate 18 18 Blood Pressure 112/68 Pulse Oximetry 97 97 Oxygen Delivery Method Oxygen Flow Rate Fraction of Inspired Oxygen 04/08/23 01:00 04/08/23 01:00 04/08/23 01:05 Temperature 97.0 F L Pulse Rate 81 Respiratory Rate 18 Blood Pressure 115/71 109/69 Pulse Oximetry 97 Oxygen Delivery Method Oxygen Flow Rate Fraction of Inspired Oxygen 04/08/23 01:05 04/08/23 01:10 04/08/23 01:10 Temperature 97.0 F L 97.0 F L Pulse Rate 80 80 Respiratory Rate 18 18 Blood Pressure 109/66 Pulse Oximetry 97 98 Oxygen Delivery Method Oxygen Flow Rate Fraction of Inspired Oxygen 04/08/23 01:15 04/08/23 01:15 04/08/23 01:20 Temperature 97.0 F L Pulse Rate 79 Respiratory Rate 18 Blood Pressure 108/67 107/68 Pulse Oximetry 98 Oxygen Delivery Method Oxygen Flow Rate Fraction of Inspired Oxygen 04/08/23 01:20 04/08/23 01:25 04/08/23 01:25 Temperature 97.0 F L 97.0 F L Pulse Rate 80 80 Respiratory Rate 18 18 Blood Pressure 109/70 Pulse Oximetry 98 98 Oxygen Delivery Method Oxygen Flow Rate Fraction of Inspired Oxygen 04/08/23 01:30 04/08/23 01:30 04/08/23 01:35 Temperature 97.0 F L Pulse Rate 79 Respiratory Rate 18 Blood Pressure 110/70 110/72 Pulse Oximetry 98 Oxygen Delivery Method Oxygen Flow Rate Fraction of Inspired Oxygen 04/08/23 01:35 04/08/23 01:40 04/08/23 01:40 Temperature 97.0 F L 97.0 F L Pulse Rate 80 79 Respiratory Rate 18 18 Blood Pressure 110/72 Pulse Oximetry 98 98 Oxygen Delivery Method Oxygen Flow Rate Fraction of Inspired Oxygen 04/08/23 01:45 04/08/23 01:45 04/08/23 01:50 Temperature 97.0 F L Pulse Rate 80 Respiratory Rate 18 Blood Pressure 111/71 116/74 Pulse Oximetry 98 Oxygen Delivery Method Oxygen Flow Rate Fraction of Inspired Oxygen 04/08/23 01:50 04/08/23 01:55 04/08/23 01:55 Temperature 97.0 F L 97.0 F L Pulse Rate 79 87 Respiratory Rate 18 18 Blood Pressure 122/89 Pulse Oximetry 99 100 Oxygen Delivery Method Oxygen Flow Rate Fraction of Inspired Oxygen 04/08/23 02:00 04/08/23 02:00 04/08/23 02:05 Temperature 97.0 F L Pulse Rate 91 H Respiratory Rate 19 Blood Pressure 128/92 H 114/75 Pulse Oximetry 100 Oxygen Delivery Method Oxygen Flow Rate Fraction of Inspired Oxygen 04/08/23 02:05 04/08/23 02:10 04/08/23 02:10 Temperature 97.0 F L 97.0 F L Pulse Rate 78 79 Respiratory Rate 18 19 Blood Pressure 109/72 Pulse Oximetry 100 100 Oxygen Delivery Method Oxygen Flow Rate Fraction of Inspired Oxygen 04/08/23 02:15 04/08/23 02:15 04/08/23 02:20 Temperature 97.0 F L Pulse Rate 78 Respiratory Rate 19 Blood Pressure 110/70 108/69 Pulse Oximetry 100 Oxygen Delivery Method Oxygen Flow Rate Fraction of Inspired Oxygen 04/08/23 02:20 04/08/23 02:25 04/08/23 02:25 Temperature 97.0 F L 97.0 F L Pulse Rate 78 76 Respiratory Rate 18 18 Blood Pressure 110/72 Pulse Oximetry 100 100 Oxygen Delivery Method Oxygen Flow Rate Fraction of Inspired Oxygen 04/08/23 02:30 04/08/23 02:30 04/08/23 02:35 Temperature 97.0 F L Pulse Rate 76 Respiratory Rate 19 Blood Pressure 113/73 113/73 Pulse Oximetry 100 Oxygen Delivery Method Oxygen Flow Rate Fraction of Inspired Oxygen 04/08/23 02:35 04/08/23 02:40 04/08/23 02:40 Temperature 97.0 F L 97.0 F L Pulse Rate 76 71 Respiratory Rate 19 18 Blood Pressure 118/78 Pulse Oximetry 100 100 Oxygen Delivery Method Oxygen Flow Rate Fraction of Inspired Oxygen 04/08/23 02:45 04/08/23 02:45 04/08/23 02:50 Temperature 97.0 F L Pulse Rate 78 Respiratory Rate 18 Blood Pressure 120/81 119/76 Pulse Oximetry 100 Oxygen Delivery Method Mechanical Ventilation Oxygen Flow Rate Fraction of Inspired Oxygen 04/08/23 02:50 04/08/23 02:55 04/08/23 02:55 Temperature 97.0 F L 97.2 F L Pulse Rate 75 77 Respiratory Rate 18 18 Blood Pressure 116/75 Pulse Oximetry 100 100 Oxygen Delivery Method Oxygen Flow Rate Fraction of Inspired Oxygen 04/08/23 03:00 04/08/23 03:00 04/08/23 03:05 Temperature 97.2 F L Pulse Rate 80 Respiratory Rate 18 Blood Pressure 116/76 112/73 Pulse Oximetry 99 Oxygen Delivery Method Oxygen Flow Rate Fraction of Inspired Oxygen 04/08/23 03:05 04/08/23 03:10 04/08/23 03:10 Temperature 97.2 F L 97.2 F L Pulse Rate 82 83 Respiratory Rate 18 18 Blood Pressure 113/73 Pulse Oximetry 98 99 Oxygen Delivery Method Mechanical Ventilation Oxygen Flow Rate Fraction of Inspired Oxygen 04/08/23 03:15 04/08/23 03:15 04/08/23 03:20 Temperature 97.3 F L Pulse Rate 86 Respiratory Rate 18 Blood Pressure 115/71 116/70 Pulse Oximetry 99 Oxygen Delivery Method Oxygen Flow Rate Fraction of Inspired Oxygen 04/08/23 03:20 04/08/23 03:25 04/08/23 03:25 Temperature 97.3 F L 97.5 F L Pulse Rate 90 91 H Respiratory Rate 18 18 Blood Pressure 111/69 Pulse Oximetry 99 99 Oxygen Delivery Method Oxygen Flow Rate Fraction of Inspired Oxygen 04/08/23 03:30 04/08/23 03:30 04/08/23 03:35 Temperature 97.5 F L Pulse Rate 93 H Respiratory Rate 18 Blood Pressure 119/69 119/67 Pulse Oximetry 99 Oxygen Delivery Method Oxygen Flow Rate Fraction of Inspired Oxygen 04/08/23 03:35 04/08/23 03:40 04/07/23 21:54 Temperature 97.7 F 97.7 F Pulse Rate 95 H 102 H Respiratory Rate 18 18 Blood Pressure Pulse Oximetry 98 Oxygen Delivery Method Oxygen Flow Rate Fraction of Inspired Oxygen 98 MDM - Seizure Lab Data 04/07/23 21:45 04/07/23 21:45 Labs: Lab Results 04/07/23 04/07/23 04/07/23 Range/Units 21:45 21:45 21:45 WBC 7.4 (4.5-11.0) X10^3/uL RBC 3.94 L (4.5-5.9) X10^6/uL Hgb 12.1 L (13.5-17.5) g/dL Hct 35.0 L (41-53) % MCV 88.8 (80-100) fL MCH 30.7 (26-34) PG MCHC 34.6 (30-36) % RDW 13.0 (11.6-14.8) % Plt Count 292 (150-400) X10^3/uL Neut % (Auto) 85.0 H (50-75) % Lymph % (Auto) 8.0 L (25-40) % [place] % (Auto) 6.0 (3-14) % Eos % (Auto) 0.2 L (2-4) % Baso % (Auto) 0.8 (0-2) % Neut # (Auto) 6300 (9086-1159) /uL Lymph # (Auto) 600 L (0806-5000) /uL [place] # (Auto) 400 (0-900) /uL Eos # (Auto) 0 (0-450) /uL Baso # (Auto) 100 (0-100) /uL ABG pH (7.35-7.45) ABG pCO2 (35-45) mmHg ABG pO2 (80-100) mmHg ABG HCO3 (23-27) mmol/L ABG Total CO2 (23-27) mmol/L ABG O2 Saturation (95-100) % ABG Base Excess (-2-3) mmol/L FiO2 Sodium 138 (137-145) mmol/L Potassium 3.5 (3.4-5.1) mmol/L Chloride 108 H (98-107) mmol/L Carbon Dioxide 20 L (22-32) mmol/L BUN 6 L (9-20) mg/dL Creatinine 0.76 (0.66-1.25) mg/dL Estimated GFR > 60 (>60) mL/min BUN/Creatinine Ratio 7.9 (6-22) Glucose 80 (70-100) mg/dL Lactate 3.2 H (0.7-2.1) mmol/L Calcium 7.5 L (8.4-10.2) mg/dL Total Bilirubin 0.6 (0.2-1.3) mg/dL AST 31 (17-59) IU/L ALT 19 (<50) IU/L Alkaline Phosphatase 62 (38-126) U/L Total Creatine Kinase 415 H (55-170) U/L CK-MB (CK-2) 1.70 (<2.37) ng/mL CK-MB (CK-2) Rel Index 0.4 L (1.5-5.0) % Troponin I < 0.012 (0.01-0.034) ng/mL Total Protein 6.7 (6.3-8.2) g/dL Albumin 3.7 (3.5-5.0) g/dL Globulin 3.0 (1.7-4.1) g/dL Albumin/Globulin Ratio 1.2 (1.0-2.8) Prolactin 28.8 H (3.7-17.9) ng/mL U Opiates 300ng/mL cut (Negative) Ur Oxycodone Screen (Negative) Urine Methadone Screen (Negative) Ur Barbiturates Screen (Negative) Phenytoin (10-20) ug/mL U Tricyclic Antidepress (Negative) Ur Phencyclidine Scrn (Negative) Ur Amphetamines Screen (Negative) U Methamphetamines Scrn (Negative) Ur MDMA Scrn (Ecstasy) (Negative) U Benzodiazepines Scrn (Negative) Urine Cocaine Screen (Negative) U Marijuana (THC) Screen (Negative) Ethyl Alcohol < 10 ( - 10) mg/dL Chlamy pneumoniae PCR (Not Detect) Adenovirus (PCR) (Not Detect) B. pertussis DNA (PCR) (Not Detecte) B.parapertussis DNA PCR (Not Detecte) Coronavirus OC43 (PCR) (Not Detect) Coronavirus HKU1 (PCR) (Not Detect) Coronavirus 229E (PCR) (Not Detect) SARS-CoV-2 (PCR) (Negative) Coronavirus NL63 (PCR) (Not Detect) Human Metapneumovir PCR (Not Detect) Influenza Type A (PCR) (Not Detect) Influenza Type B (PCR) (Not Detect) M. pneumoniae (PCR) (Not Detect) Parainfluenza 1 (PCR) (Not Detect) Parainfluenza 2 (PCR) (Not Detect) Parainfluenza 3 (PCR) (Not Detect) Parainfluenza 4 (PCR) (Not Detect) RSV (PCR) (Not Detect) Entero/Rhino (PCR) (Not Detect) 04/07/23 04/07/23 04/07/23 Range/Units 21:45 21:53 21:53 WBC (4.5-11.0) X10^3/uL RBC (4.5-5.9) X10^6/uL Hgb (13.5-17.5) g/dL Hct (41-53) % MCV (80-100) fL MCH (26-34) PG MCHC (30-36) % RDW (11.6-14.8) % Plt Count (150-400) X10^3/uL Neut % (Auto) (50-75) % Lymph % (Auto) (25-40) % [place] % (Auto) (3-14) % Eos % (Auto) (2-4) % Baso % (Auto) (0-2) % Neut # (Auto) (2326-9336) /uL Lymph # (Auto) (9944-7794) /uL [place] # (Auto) (0-900) /uL Eos # (Auto) (0-450) /uL Baso # (Auto) (0-100) /uL ABG pH 7.38 (7.35-7.45) ABG pCO2 37.8 (35-45) mmHg ABG pO2 181 H (80-100) mmHg ABG HCO3 22 L (23-27) mmol/L ABG Total CO2 23 (23-27) mmol/L ABG O2 Saturation 100 (95-100) % ABG Base Excess -3.0 L (-2-3) mmol/L FiO2 40 Sodium (137-145) mmol/L Potassium (3.4-5.1) mmol/L Chloride (98-107) mmol/L Carbon Dioxide (22-32) mmol/L BUN (9-20) mg/dL Creatinine (0.66-1.25) mg/dL Estimated GFR (>60) mL/min BUN/Creatinine Ratio (6-22) Glucose (70-100) mg/dL Lactate (0.7-2.1) mmol/L Calcium (8.4-10.2) mg/dL Total Bilirubin (0.2-1.3) mg/dL AST (17-59) IU/L ALT (<50) IU/L Alkaline Phosphatase (38-126) U/L Total Creatine Kinase (55-170) U/L CK-MB (CK-2) (<2.37) ng/mL CK-MB (CK-2) Rel Index (1.5-5.0) % Troponin I (0.01-0.034) ng/mL Total Protein (6.3-8.2) g/dL Albumin (3.5-5.0) g/dL Globulin (1.7-4.1) g/dL Albumin/Globulin Ratio (1.0-2.8) Prolactin (3.7-17.9) ng/mL U Opiates 300ng/mL cut (Negative) Ur Oxycodone Screen (Negative) Urine Methadone Screen (Negative) Ur Barbiturates Screen (Negative) Phenytoin < 3.0 L (10-20) ug/mL U Tricyclic Antidepress (Negative) Ur Phencyclidine Scrn (Negative) Ur Amphetamines Screen (Negative) U Methamphetamines Scrn (Negative) Ur MDMA Scrn (Ecstasy) (Negative) U Benzodiazepines Scrn (Negative) Urine Cocaine Screen (Negative) U Marijuana (THC) Screen (Negative) Ethyl Alcohol ( - 10) mg/dL Chlamy pneumoniae PCR (Not Detect) Adenovirus (PCR) (Not Detect) B. pertussis DNA (PCR) (Not Detecte) B.parapertussis DNA PCR (Not Detecte) Coronavirus OC43 (PCR) (Not Detect) Coronavirus HKU1 (PCR) (Not Detect) Coronavirus 229E (PCR) (Not Detect) SARS-CoV-2 (PCR) Negative (Negative) Coronavirus NL63 (PCR) (Not Detect) Human Metapneumovir PCR (Not Detect) Influenza Type A (PCR) (Not Detect) Influenza Type B (PCR) (Not Detect) M. pneumoniae (PCR) (Not Detect) Parainfluenza 1 (PCR) (Not Detect) Parainfluenza 2 (PCR) (Not Detect) Parainfluenza 3 (PCR) (Not Detect) Parainfluenza 4 (PCR) (Not Detect) RSV (PCR) (Not Detect) Entero/Rhino (PCR) (Not Detect) 04/07/23 04/08/23 04/08/23 Range/Units 21:53 00:10 01:53 WBC (4.5-11.0) X10^3/uL RBC (4.5-5.9) X10^6/uL Hgb (13.5-17.5) g/dL Hct (41-53) % MCV (80-100) fL MCH (26-34) PG MCHC (30-36) % RDW (11.6-14.8) % Plt Count (150-400) X10^3/uL Neut % (Auto) (50-75) % Lymph % (Auto) (25-40) % [place] % (Auto) (3-14) % Eos % (Auto) (2-4) % Baso % (Auto) (0-2) % Neut # (Auto) (4244-1979) /uL Lymph # (Auto) (2509-6586) /uL [place] # (Auto) (0-900) /uL Eos # (Auto) (0-450) /uL Baso # (Auto) (0-100) /uL ABG pH (7.35-7.45) ABG pCO2 (35-45) mmHg ABG pO2 (80-100) mmHg ABG HCO3 (23-27) mmol/L ABG Total CO2 (23-27) mmol/L ABG O2 Saturation (95-100) % ABG Base Excess (-2-3) mmol/L FiO2 Sodium (137-145) mmol/L Potassium (3.4-5.1) mmol/L Chloride (98-107) mmol/L Carbon Dioxide (22-32) mmol/L BUN (9-20) mg/dL Creatinine (0.66-1.25) mg/dL Estimated GFR (>60) mL/min BUN/Creatinine Ratio (6-22) Glucose (70-100) mg/dL Lactate 0.8 (0.7-2.1) mmol/L Calcium (8.4-10.2) mg/dL Total Bilirubin (0.2-1.3) mg/dL AST (17-59) IU/L ALT (<50) IU/L Alkaline Phosphatase (38-126) U/L Total Creatine Kinase (55-170) U/L CK-MB (CK-2) (<2.37) ng/mL CK-MB (CK-2) Rel Index (1.5-5.0) % Troponin I (0.01-0.034) ng/mL Total Protein (6.3-8.2) g/dL Albumin (3.5-5.0) g/dL Globulin (1.7-4.1) g/dL Albumin/Globulin Ratio (1.0-2.8) Prolactin (3.7-17.9) ng/mL U Opiates 300ng/mL cut Negative (Negative) Ur Oxycodone Screen Negative (Negative) Urine Methadone Screen Negative (Negative) Ur Barbiturates Screen Negative (Negative) Phenytoin (10-20) ug/mL U Tricyclic Antidepress Negative (Negative) Ur Phencyclidine Scrn Negative (Negative) Ur Amphetamines Screen Negative (Negative) U Methamphetamines Scrn Negative (Negative) Ur MDMA Scrn (Ecstasy) Negative (Negative) U Benzodiazepines Scrn Negative (Negative) Urine Cocaine Screen Negative (Negative) U Marijuana (THC) Screen Positive H (Negative) Ethyl Alcohol ( - 10) mg/dL Chlamy pneumoniae PCR Not detected (Not Detect) Adenovirus (PCR) Not detected (Not Detect) B. pertussis DNA (PCR) Not detected (Not Detecte) B.parapertussis DNA PCR Not detected (Not Detecte) Coronavirus OC43 (PCR) Not detected (Not Detect) Coronavirus HKU1 (PCR) Not detected (Not Detect) Coronavirus 229E (PCR) Not detected (Not Detect) SARS-CoV-2 (PCR) Not detected (Negative) Coronavirus NL63 (PCR) Not detected (Not Detect) Human Metapneumovir PCR Not detected (Not Detect) Influenza Type A (PCR) Not detected (Not Detect) Influenza Type B (PCR) Not detected (Not Detect) M. pneumoniae (PCR) Not detected (Not Detect) Parainfluenza 1 (PCR) Not detected (Not Detect) Parainfluenza 2 (PCR) Not detected (Not Detect) Parainfluenza 3 (PCR) Not detected (Not Detect) Parainfluenza 4 (PCR) Not detected (Not Detect) RSV (PCR) Not detected (Not Detect) Entero/Rhino (PCR) Not detected (Not Detect) Point of Care Testing Glucose POC [address] scan - head: Radiologist's Impression: PROCEDURE:? CT HEAD/BRAIN WO CON ? INDICATIONS:? new onset seizure ? TECHNIQUE:? Noncontrast 4.5 mm thick angled axial sections acquired from the foramen magnum to the vertex, with coronal and sagittal reformats.? For radiation dose reduction, the following was used:? automated exposure control, adjustment of mA and/or kV according to patient size.? ? COMPARISON:? [facility], CT, CT ANGIO HEAD AND NECK, 07/18/2018, 18:00.? [facility], CT, CT BRAIN WO CON, 10/24/2016, 20:13. ? FINDINGS:? Image quality:? Excellent.? ? CSF spaces:? Basal cisterns are patent.? No extra-axial fluid collections.? Ventricles are normal in size and shape.? ? Brain:? No intracranial hemorrhage, mass, or mass effect.? Marie-white matter interface appears preserved.? There indistinct periventricular hypodensities in the occipital lobes along the posterior horns of the lateral ventricles. ? Skull and face:? Calvarium and visualized facial bones are intact, without contreras spicious lesions.? There is dependent fluid within the nasopharynx and oropharynx. ? Sinuses:? Visualized sinuses and mastoids are clear.? ? IMPRESSION:? ? 1. No acute intracranial hemorrhage or mass effect. ? 2. Dependent fluid within the nasopharynx and oropharynx.? ? 3. Indistinct periventricular white matter hypodensities within the occipital lobes are nonspecific and the differential is broad.? These include inflammatory processes, demyelinating disease, vasculitis, or chronic small vessel ischemic changes.? Further evaluation may be obtained with MRI when clinically feasible. ? ? Dictated by: Woo Moss M.D. on 04/07/2023 at 21:45 ? ? Approved by: Woo Moss M.D. on 04/07/2023 at 21:50 ? Chest x-ray: Radiologist's Impression: PROCEDURE:? XR CHEST 1V ? INDICATIONS:? ET tube ? TECHNIQUE:? One view of the chest was acquired.? ? COMPARISON:? None. ? FINDINGS:? ? Surgical changes and devices:? There is an endotracheal tube with the tip approximately 5 cm from the gladis.? A nasogastric tube extends into the stomach with the tip not fully included on the current study.? The side port appears located at the gastroesophageal junction.? ? Lungs and pleura:? There are linear left retrocardiac opacities likely represent atelectasis.? No pleural effusions or pneumothorax.? ? Mediastinum:? Mediastinal contours appear normal.? Heart size is normal.? ? Bones and chest wall:? No suspicious bony lesions.? Overlying soft tissues appear unremarkable.? ? IMPRESSION:? ? 1. Endotracheal tube tip approximately 5 cm from the gladis. ? 2. Probable mild atelectasis medially in the lung bases. ? 3. Side port of nasogastric tube demonstrated in the region of the gastroesophageal junction.? Recommend further advancement into the stomach.? ? ? Dictated by: Woo Moss M.D. on 04/07/2023 at 23:14 ? ? Approved by: Woo Moss M.D. on 04/07/2023 at 23:15 ? ECG Data Interpretation: Normal sinus rhythm rate 98 PA interval 126 QRS 100 QTC 480 MDM Narrative Medical decision making narrative: Patient is 42-year-old male history of seizures presenting today with combative postictal picture. He would a witnessed seizure on a bus. Requiring multiple medications per EMS and then required intubation for airway protection. Patient's head CT is negative he is an undetectable Dilantin level. No fever or leukocytosis. Carbon dioxide is 20 with a lactate of 3.2 does improve to 0.8 fluids. No evidence of FREDA for rhabdomyolysis. His alcohol intoxication is negative. Drug screen is positive only for marijuana. Patient returns from CT initially sedated on an Ativan and fentanyl drip. Fentanyl drip max out patient started waking moving extremities but not re sponsive. Required multiple doses of medication for sedation including Versed 100 mg of propofol, Dilaudid and eventually added a propofol drip. He is propofol worked temporarily however still thrashing and then received ketamine 200 mg IV. Patient finally sedated and calm. Patient is not having active seizure activity, moving legs look trying to lift head trying to grab at ET tube. It is possible this is ongoing atypical seizure unable to tell at this time. He is given 1 dose of Keppra. I do not actually suspect that he is having status epilepticus episode. After talking with the girlfriend she reports after his episodes he is pretty agitated. This seems to clinically correlate. He is not having tonic-clonic jerking movements and becoming rigid. He is hanging his legs off the bed attempting to grab ETT requiring multiple people to hold him down requiring multiple boluses of medications. Spoke with neurology at [facility] unclear if patient is still actively seizing or if he is just agitated. Unable to do continuous EEG at [facility] Dr Ramirez, rotary drum tanner at [facility] agrees with Neurology unable to do an EEG unable to accept patient Dr. Zuleta, neuro rotary drum tanner at [facility] if patient's symptoms test results kindly accepts patient request for blood cultures and respiratory panel. Minerva is girlfriend [phone], I have called and notified of patient's acceptance Patient does not have a fever leukocytosis possibility agitation is secondary to infection. Screen negative head CT is negative. Critical Care Time Critical Care Time Critical Care Time: Yes Total Critical Care Time: 45 Attestation: The high probability of a clinically significant, sudden or life threatening deterioration of the neurovascular system(s) required my full and direct attention, intervention and personal management. The aggregate critical care time was [45] minutes. This time is in addition to time spent performing r eported procedures but includes the following: [x] Data Review and interpretation [x] Patient assessment and monitoring of vital signs [x] Documentation [x] Medication orders and management Discharge Plan Departure Patient Disposition: [facility] Clinical Impression: Generalized seizure Prescriptions: No Action phenytoin sodium extended [Dilantin Extended] 100 MG capsule 500 mg PO QDAY Qty: 30 0RF Referrals: Cale Muñoz MD [Primary Care Provider] -
--- NOTE | 2023-04-07 21:37 | DI.CT.S_ITS ---
PROCEDURE: CT HEAD/BRAIN WO CON INDICATIONS: new onset seizure TECHNIQUE: Noncontrast 4.5 mm thick angled axial sections acquired from the foramen magnum to the vertex, with coronal and sagittal reformats. For radiation dose reduction, the following was used: automated exposure control, adjustment of mA and/or kV according to patient size. COMPARISON: [facility], CT, CT ANGIO HEAD AND NECK, 07/18/2018, 18:00. [facility], CT, CT BRAIN WO CON, 10/24/2016, 20:13. FINDINGS: Image quality: Excellent. CSF spaces: Basal cisterns are patent. No extra-axial fluid collections. Ventricles are normal in size and shape. Brain: No intracranial hemorrhage, mass, or mass effect. Marie-white matter interface appears preserved. There indistinct periventricular hypodensities in the occipital lobes along the posterior horns of the lateral ventricles. Skull and face: Calvarium and visualized facial bones are intact, without suspicious lesions. There is dependent fluid within the nasopharynx and oropharynx. Sinuses: Visualized sinuses and mastoids are clear. IMPRESSION: 1. No acute intracranial hemorrhage or mass effect. 2. Dependent fluid within the nasopharynx and oropharynx. 3. Indistinct periventricular white matter hypodensities within the occipital lobes are nonspecific and the differential is broad. These include inflammatory processes, demyelinating disease, vasculitis, or chronic small vessel ischemic changes. Further evaluation may be obtained with MRI when clinically feasible. Dictated by: Woo Moss M.D. on 04/07/2023 at 21:45 Approved by: Woo Moss M.D. on 04/07/2023 at 21:50
--- NOTE | 2023-04-07 21:39 | DI.RAD.S_ITS ---
PROCEDURE: XR CHEST 1V INDICATIONS: ET tube TECHNIQUE: One view of the chest was acquired. COMPARISON: None. FINDINGS: Surgical changes and devices: There is an endotracheal tube with the tip approximately 5 cm from the gladis. A nasogastric tube extends into the stomach with the tip not fully included on the current study. The side port appears located at the gastroesophageal junction. Lungs and pleura: There are linear left retrocardiac opacities likely represent atelectasis. No pleural effusions or pneumothorax. Mediastinum: Mediastinal contours appear normal. Heart size is normal. Bones and chest wall: No suspicious bony lesions. Overlying soft tissues appear unremarkable. IMPRESSION: 1. Endotracheal tube tip approximately 5 cm from the gladis. 2. Probable mild atelectasis medially in the lung bases. 3. Side port of nasogastric tube demonstrated in the region of the gastroesophageal junction. Recommend further advancement into the stomach. Dictated by: Woo Moss M.D. on 04/07/2023 at 23:14 Approved by: Woo Moss M.D. on 04/07/2023 at 23:15
[2023-04-07 21:57] LABS: Add Manual Diff / Slide Review NO; Basophils Absolute Auto 100 /uL (0-100); Basophils Percent Auto 0.8 % (0-2); Eosinophils Absolute Auto 0 /uL (0-450); Eosinophils Percent Auto 0.2 % (2-4); Hemoglobin 12.1 g/dL (13.5-17.5); Lymphocytes Absolute Auto 600 /uL (1100-4500); Mean Corpuscular HGB Conc 34.6 % (30-36); Mean Corpuscular Hemoglobin 30.7 PG (26-34); Mean Corpuscular Volume 88.8 fL (80-100); Monocytes Absolute Auto 400 /uL (0-900); Neutrophils Absolute Auto 6300 /uL (1500-7000); Platelet Count 292 X10^3/uL (150-400); Red Blood Cell Count 3.94 X10^6/uL (4.5-5.9); White Blood Cell Count 7.4 X10^3/uL (4.5-11.0)
[2023-04-07 22:11] LABS: Alanine Aminotransferase 19 IU/L (<50); Albumin 3.7 g/dL (3.5-5.0); Albumin Globulin Ratio 1.2 (1.0-2.8); Alkaline Phosphatase 62 U/L (38-126); Aspartate Aminotransferase 31 IU/L (17-59); BUN Creatinine Ratio 7.9 (6-22); Bilirubin Total 0.6 mg/dL (0.2-1.3); Blood Urea Nitrogen 6 mg/dL (9-20); Calcium 7.5 mg/dL (8.4-10.2); Carbon Dioxide 20 mmol/L (22-32); Chloride 108 mmol/L (98-107); Creatine Kinase 415 U/L (55-170); Estimated Glomerular Filt Rate > 60 mL/min (>60); Ethanol (ETOH) < 10 mg/dL; Glucose 80 mg/dL (70-100); HEMOLYSIS 34 (0-50); Potassium 3.5 mmol/L (3.4-5.1); Sodium 138 mmol/L (137-145); Total Protein 6.7 g/dL (6.3-8.2)
[2023-04-07] MEDS: fentaNYL 1,000 MCG in DEXTROSE 5% IN WATER 230 ML 12.775 MCG IV (22:11)
[2023-04-07 22:22] LABS: Troponin I < 0.012 ng/mL (0.01-0.034)
[2023-04-07] MEDS: LORazepam 20 MG in SODIUM CHLORIDE 0.9% 90 ML 3.65 MG IV (22:24)
[2023-04-07 22:27] LABS: Prolactin 28.8 ng/mL (3.7-17.9)
[2023-04-07 22:36] LABS: CKMB % Relative Index 0.4 % (1.5-5.0)
[2023-04-07 22:46] LABS: COVID19 -Nasal RAPID Negative (Negative)
[2023-04-07] MEDS: MIDAZOLAM 5 MG/ML VIAL 4 MG IV (22:49)
[2023-04-07] MEDS: levETIRAcetam 1,000 MG in SODIUM CHLORIDE 0.9% 100 ML 440 MG IV (22:53)
[2023-04-07] MEDS: propofoL 1,000 MG/100 ML VIAL 2.19 MG IV (23:06)
[2023-04-07] MEDS: HYDROMORPHONE 1 MG INJ IV (23:07)
[2023-04-07] MEDS: LORazepam 2 MG/ML INJ IV (23:07)
[2023-04-07] MEDS: propofoL 200 MG/20 ML VIAL 100 MG IV (23:09)
[2023-04-07 23:13] LABS: Lactate (Lactic Acid) 3.2 mmol/L (0.7-2.1)
[2023-04-07] MEDS: KETAMINE 500 MG/10 ML INJ 200 MG IV (23:21)
[2023-04-07 23:23] LABS: UR Morphine/Opiate cutoff 300 Negative (Negative); Ur Creatinine Normal (Normal); Ur Specific Gravity Normal (Normal); Urine Amphetamines Negative (Negative); Urine Barbiturates Negative (Negative); Urine Benzodiazepines Negative (Negative); Urine Cocaine Negative (Negative); Urine MDMA Negative (Negative); Urine Methadone Negative (Negative); Urine Methamphetamines Negative (Negative); Urine Oxycodone Negative (Negative); Urine Phencyclidine Negative (Negative); Urine Tetrahydrocannabinol Positive (Negative); Urine Tricyclic Antidepressant Negative (Negative); Urine pH Normal (Normal)
[2023-04-07 23:38] LABS: Phenytoin / Dilantin < 3.0 ug/mL (10-20)
[2023-04-07 23:52] LABS: Reflexed Lactate in 2 Hours Y
[2023-04-08] VITALS (46 sets, daily range): BP systolic 106–128; BP diastolic 64–92; PULSE 71–102; RESP 18–19; TEMP 36.1–36.5; O2SAT 96–100
--- NOTE | 2023-04-08 00:13 | PC.NURSE ---
arrived in patient's room. pt was thrashing all over the bed . pulling at iv lines. trying to pull out oett. pt already had soft wrist restraints on. b/l ankle restraints placed on . ketatmine [address] Sherwood at bedside
[2023-04-08 00:15] LABS: PCO2 ABG 37.8 mmHg (35-45); pH ABG 7.38 (7.35-7.45)
[2023-04-08 00:16] LABS: HCO3 ABG 22 mmol/L (23-27); Oxygen Saturation ABG 100 % (95-100); PO2 ABG 181 mmHg (80-100); TCO2 ABG 23 mmol/L (23-27)
[2023-04-08 00:17] LABS: Fractionated Inspired Oxygen 40
[2023-04-08 00:31] LABS: Lactate 2HR (Lactic Acid Rflx) 0.8 mmol/L (0.7-2.1)
--- NOTE | 2023-04-08 01:46 | PC.NURSE ---
Pt care turned over to this RN. All drips running per JAN. RT at bedside. Vitals are 80 HR, 111/71 BP, 18 R, 98% on vent, 30 end tidal, 97.1 temp.
--- NOTE | 2023-04-08 01:55 | PC.NURSE ---
B/l leg restraints removed about 15 mins after restraints placed on pt.. pt calmed down with his drips titrating. aware.
--- NOTE | 2023-04-08 02:01 | PC.NURSE ---
Pt becomes restless. Provider made aware. Verbal order for 50 mg of bolus propofol ordered. Provider pushed.
[2023-04-08] MEDS: propofoL 200 MG/20 ML VIAL 50 MG IV (02:03)
--- NOTE | 2023-04-08 02:10 | PC.NURSE ---
Lab called for draw for second set of cultures.
--- NOTE | 2023-04-08 02:39 | PC.NURSE ---
Lab at bedside. Talavera patent and draining.
--- NOTE | 2023-04-08 03:00 | PC.NURSE ---
Fentanyl drip running low. Called coordinator for new bag.
[2023-04-08 03:02] LABS: Adenovirus Not Detected (Not Detect); B. parapertussis Not Detected (Not Detecte); Bordetella pertussis Not Detected (Not Detecte); Chlamydophila pneumoniae Not Detected (Not Detect); Coronavirus 229E Not Detected (Not Detect); Coronavirus HKU1 Not Detected (Not Detect); Coronavirus NL 63 Not Detected (Not Detect); Coronavirus OC43 Not Detected (Not Detect); Human Metapneumovirus Not Detected (Not Detect); Human Rhinovirus/Enterovirus Not Detected (Not Detect); Influenza A Not Detected (Not Detect); Influenza B Not Detected (Not Detect); Mycoplasma pneumoniae Not Detected (Not Detect); Parainfluenza Virus 1 Not Detected (Not Detect); Parainfluenza Virus 2 Not Detected (Not Detect); Parainfluenza Virus 3 Not Detected (Not Detect); Parainfluenza Virus 4 Not Detected (Not Detect); Respiratory Syncytial Virus Not Detected (Not Detect); SARS- CoV-2 Not Detected (Not Detecte)
[2023-04-08] MEDS: fentaNYL 1,000 MCG in DEXTROSE 5% IN WATER 230 ML 36.5 MCG IV (03:19)
--- NOTE | 2023-04-08 03:32 | PC.NURSE ---
NWA arrives. Report given to GRACIELA Robledo at [facility].
[2023-04-08 23:58] LABS: Acinetobacter calcoa-baumannii Not Detected (Not Detect); Bacteroides fragilis Not Detected (Not Detect); Candida albicans Not Detected (Not Detect); Candida auris Not Detected (Not Detect); Candida glabrata Not Detected (Not Detect); Candida krusei Not Detected (Not Detect); Candida parapsilosis Not Detected (Not Detect); Candida tropicalis Not Detected (Not Detect); Cryptococcus neoformans/gatti Not Detected (Not Detect); Enterobacter cloacae complex Not Detected (Not Detect); Enterobacterales Not Detected (Not Detect); Enterococcus faecalis Not Detected (Not Detect); Enterococcus faecium Not Detected (Not Detect); Haemophilus influenzae Not Detected (Not Detect); Klebsiella aerogenes Not Detected (Not Detect); Listeria monocytogenes Not Detected (Not Detect); Neisseria meningitidis Not Detected (Not Detect); Proteus species Not Detected (Not Detect); Pseudomonas aeruginosa Not Detected (Not Detect); Salmonella species Not Detected (Not Detect); Serratia marcescens Not Detected (Not Detect); Staphylococcus epidermidis DETECTED (Not Detect); Staphylococcus lugdunensis Not Detected (Not Detect); Staphylococcus species DETECTED (Not Detect); Stenotrophomonas maltophilia Not Detected (Not Detect); Streptococcus agalactiae (Gr B Not Detected (Not Detect); Streptococcus pneumonia Not Detected (Not Detect); Streptococcus pyogenes (Gr A) Not Detected (Not Detect); Streptococcus species Not Detected (Not Detect); mecA/C Resistance Not Detected (Not Detect)
--- NOTE | 2023-04-09 00:46 | PC.NURSE ---
Received positive blood culture results, faxed them to [facility] at fax number [phone], and called results to GRACIELA Garcia at [phone]
== END 2023-04-08 03:50 | disposition short-term general hospital (02) ==
PROVIDERS: Emergency Provider Emergency Medicine; PCP Family Medicine
DX: G40.409 Other generalized epilepsy and epileptic syndromes, not intractable, without status epilepticus (principal); R07.9 Chest pain, unspecified; Z20.822 Contact with and (suspected) exposure to COVID-19
CPT/HCPCS: 36415; 36600; 70450; 71045; 80053; 80185; 80305; 80320; 82550; 82553; 82805; 82962; 83605; 84146; 84484; 85025; 87040; 87154; 87186; 87633; 87635; 93005; 94002; 96365; 96366; 96368; 96375; 99152; 99153; 99285; 99291; 99292; C9803; J1170; J1953; J2060; J2250; J2704; J3010